=== PATIENT | male | born 1935 | race Caucasian/White ===

== ENCOUNTER 2016-08-30 12:35 | Day surgery (SDC) | payer MEDICARE ==
[~2016-08-30] VITALS: Ht 190.5 cm; Wt 86.0 kg
[~2016-08-30 12:35] MED LIST: 0.9% Sodium Chloride 1,000 ML IV SCH; Sodium Chloride LOK Flush 10 mL Syringe IV PRN; fentaNYL-PF 50 mCg/mL 2 mL Inj IVPUSH PRN
[2016-08-30 13:18] VITALS: BP 182/92; PULSE 87; RESP 16; O2SAT 97
[2016-08-30 14:30] VITALS: BP 135/83; PULSE 65; RESP 12; O2SAT 99
[2016-08-30 14:39] VITALS: BP 145/78; PULSE 65; RESP 16; O2SAT 98
--- NOTE | 2016-08-30 19:55 | ENDO ---
[address] [address] ENDOSCOPY PROCEDURE PATIENT: SHYANNE ECHOLS : 1935 MR#: [id number] ADMIT: 08/30/2016 JOB ID: [id number] DATE: 08/30/2016 PROCEDURE: Colonoscopy. INDICATION: Screening. ANESTHESIA: Patient's ASA classification is two. Mallampati score is two. MEDICATIONS: 1. Versed 6 mg. 2. Fentanyl 125 mcg. INSTRUMENT USED: PCF H 180 AL. PREPARATION QUALITY: Fair. PROCEDURE DETAILS: After informed consent was obtained, the patient was brought into the GI suite, where he was placed on oxygen via nasal cannula and monitored with continuous pulse oximeter, telemetry, and blood pressure monitoring. A time-out was performed, then he was placed in the left lateral decubitus position and medications were administered for sedation. Digital rectal exam was performed, which revealed an enlarged prostate without any palpable masses. The colonoscope was then inserted into the rectum and advanced under direct visualization to the cecum, which was identified by the presence of the ileocecal valve and appendiceal orifice. Once the cecum was reached, the colonoscope was withdrawn back into the rectum as the mucosa and lumen were examined. In the rectum, retroflexion was performed. Following retroflexion, the remaining air in the rectum was suctioned and the procedure was completed. FINDINGS: 1. In the ascending colon, there was an approximately 6 mm flat polyp. The polyp had the appearance consistent with serrated adenoma. The polyp was lifted using normal saline and then removed with a hot snare. 2. In the transverse colon, there were four polyps ranging in size from diminutive to approximately 1 cm. They were removed with a combination of cold biopsy forceps and hot snare. 3. Scattered diverticula were seen in the sigmoid colon. IMPRESSION: 1. One ascending colon polyp. 2. Four transverse polyps. 3. Scattered sigmoid diverticula. RECOMMENDATIONS: 1. Avoid NSAIDs and anticoagulants for 72 hours. 2. Repeat colonoscopy in three years. COMPLICATIONS: None. ESTIMATED BLOOD LOSS: Less than 5 mL.
--- NOTE | 2016-09-03 14:56 | PATH ---
SURGICAL PATHOLOGY Attending Physician:Humaira Su CASE STATUS: Signed Out PATIENT NAME: SHYANNE ECHOLS PID: [id number] : 1935 DATE COLLECTED:08/30/2016 00:00 SPECIMEN: 1: Colon, Polyp 2: Colon, Polyp CLINICAL HISTORY: 1). TRANSVERSE COLON POLYP X4 2). 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 2.ASCENDING COLON POLYP: SESSILE SERRATED ADENOMA. ICD10 D12.3 GROSS DESCRIPTION: The specimens are received in formalin, labeled with the patient's name, and sublabeled as the following: (1) transverse colon polyp; (2) ascending colon polyp. (1) The specimen consists of a preston-white rubbery sessile polyp (1.2 x 0.8 x 0.6 cm) and multiple fragments of preston-yellow glistening semitranslucent tissue (1.3 x 0.7 x 0.3 cm in aggregate). Ink code: black-resection margin. Section code: (1A) polyp, trisected; (1B) tissue fragments. Specimen entirely submitted. (2) The specimen consists of a preston-white glistening rubbery sessile polyp (0.5 x 0.3 x 0.2 cm). Section code: (2A) polyp, bisected. Specimen entirely submitted. 09/01/16 JM MICRO DESCRIPTION: See diagnosis. ICD-9 CODES: CPT CODES: 1: 37591 2: 67837 Electronically Signed Out Zach Mays MD [facility] [address], [place] [address] Technical component performed at [facility], [address] [place] [address] Ave[address], [place], [address]
== END 2016-08-30 23:59 | disposition home or self-care (01) ==
LOC: END 12:35
PROVIDERS: ATTEND Internal Medicine Gastroenterology
DX: Z12.11 Encounter for screening for malignant neoplasm of colon (principal); D12.3 Benign neoplasm of transverse colon; D12.2 Benign neoplasm of ascending colon; K57.30 Diverticulosis of large intestine without perforation or abscess without bleeding; R01.1 Cardiac murmur, unspecified; F17.210 Nicotine dependence, cigarettes, uncomplicated; Z85.828 Personal history of other malignant neoplasm of skin; G25.0 Essential tremor
CPT/HCPCS: 45380; 45381; 45385; 99153; G0500; J2250; J3010; J7030